=== PATIENT | male | born 1955 | race Caucasian/White ===

== ENCOUNTER → 2024-06-20 08:58 | Outpatient (REF) | payer MEDICARE, SELFPAY ==
--- NOTE | 2024-06-20 09:05 | CA_ITS ---
Transthoracic Echocardiogram Patient (Last, First, Middle): Tres Pettit, Gender: Male Date of : 1955 Age: 69 Procedure Date: 06/20/2024 Procedure Type: Transthoracic Echocardiogram Location: OP Height: 177.8 cm Weight: 165.56 kg BSA: 2.70 m2 Heart Rate: 81 bpm BP: 125 / 80 mmHg Scabbler: Referring MD: Zee WELLER Symptoms: HF Study Quality: Technically Difficult due to body Habitus ECG Rhythm: Atrial Fibrillation Conclusions: - Technically limited study. - Normal LVEF with no regional wall motion abnormality. - Very limited 2 D valvular assessment. Findings Procedure Information Contrast agent, definity, is being given per protocol without apparent complications. Left Ventricle Normal left ventricular size and systolic function. The visually estimated ejection fraction is between 60-65%. There is no evidence of regional wall motion abnormalities. Diastolic function is indeterminate on the basis of available data. Right Ventricle The right ventricle was not well visualized. Mildly increased right ventricular cavity size. Atria The left atrium is normal in size. The right atrium was not well visualized. Aortic Valve The aortic valve was not well visualized. There is no aortic valve stenosis. There is no aortic valve regurgitation. Mitral Valve The mitral valve was not well visualized. Likely normal mitral valve structure and function. There is no mitral valve regurgitation. There is no mitral valve stenosis. Tricuspid Valve The tricuspid valve was not well visualized. There is no tricuspid valve regurgitation. Indeterminate right atrial pressure. Great Vessels The aorta was not well visualized. Venous The inferior vena cava is normal in size and collapses greater than 50% with inspiration. Pericardium/Pleural There is no evidence of pericardial effusion. Prior Study Comparison No prior study available for comparison. Measurements 2D Linear Measurements Ao Root: 3.50 2.1-3.5 cm LVOT Diam: 2.20 3.0+(-)1.3 cm 2D Systolic Function EF 4C: 70.00 >55% EF 2C: 59.00 >55% EF BiP: 63.50 >55% Mitral Valve MV Pk E: 0.83 MV Decel Time: 190.00 E'Lateral: 9.25 E'Medial: 9.90 E/E' Med: 8.40 E/E' Lat: 8.90 PHT: 56.00 MVA PHT: 3.93 Decel [place]: 4.35 Aortic Valve AoV Pk Celso: 0.87 AoV Mn Celos: 0.61 AoV VTI: 0.17 AoV Pk Grad: 3.00 Aov Mn Grad: 2.00 YOSELIN Cont.VTI: 3.29 LVOT LVOT Pk Celso: 0.71 LVOT Mn Celso: 0.48 LVOT VTI: 0.15 LVOT Pk Grad: 2.00 LVOT Mn Grad: 1.00 LVOT Diam: 2.20 LVOT Area: 3.80 Diastolic Function MV Pk E: 0.83 E'Medial: 9.90 E/E' Med: 8.40 E' Laterial: 9.25 E/E' Lat: 8.90 Right Ventricle TAPSE (mm): 25.00 Tricuspid Valve TR Pk Celso: 1.57 TR Pk Grad: 10.00 RA Press: 3.00 RVSP: 13.00 Great Vessels Aorta Ao Root-2D: 3.50 2.0-3.7 cm Pulmonary Valve PV Pk Celso: 0.69 Peak PV Grad: 2.00 Updated in Other Vendor System with Status of Final Josh Moon MD electronically signed on 06/22/2024 7:16:56 PM with status of Final
--- OUTSIDE RECORDS SUMMARY | 2024-06-20 09:13 | XMS_ITS | Encounter Summary ---
Author Organization [employer] Address [address] [place] [address] Care Team Providers Care Vehicle Monitor Technician Name Role Phone Rojas Cardoza MD Primary Care Provider [phone] Saturnino Hansen Unavailable Unavailable Encounter Details Date Type Department Care Team (Late st Contact Info) Description 07/26/[address] [facility] [address] [place] [address] Provider, Isidra, Social History Tobacco Use Types Packs/Day Years Used Date Smoking Tobacco: Never Assessed Sex and Gender Information Value Date Recorded Sex Assigned at Male 02/16/2023 5:08 PM EST Legal Sex Male 5:31 PM EST Gender Identity Male 02/16/2023 5:08 PM EST Sexual Orientation Straight 02/16/2023 5: 08 PM EST documented as of this encounter Plan of Treatment Not on file documented as of this encounter Procedures Procedure Name Priority Date/Time Associated Diagnosis Comments DIABETES EYE EXAM Routine 01/17/2022 6:09 AM EST documented in this encounter Results * Diabetes Eye Exam (01/17/2022 6:09 AM EST) Historical Provider HEALTH MAINTENANCE Final Result documented in this encounter Visit Diagnoses Not on filedocumented in this encounter Care Teams Vehicle Monitor Technician Relationship Specialty Start Date End Date Rojas Cardoza MD [address] [place] [phone] PCP - General Internal Medicine 07/09/23 Saturnino Hansen Health Navigator 12/11/23 documented as of this encounter
--- OUTSIDE RECORDS SUMMARY | 2024-06-20 09:13 | XMS_ITS | Encounter Summary ---
Author Organization [facility], Address [address] [address] Phone Care Team Providers Care Mixer Dry Food Products Name Role Phone Ana Silver NP Primary Care Provider Abdullahi harmon Encounter Details Date Type Department Care Team (Late st Contact Info) Description 10/02/2022 Documentation Only [facility] [address] [place] [phone] Ana Silver NP Social History Tobacco Use Types Packs/Day Years Used Date Smoking Tobacco: Never Assessed Sex and Gender Information Value Date Recorded Sex Assigned at Not on file Legal Sex Male 12:40 PM EDT Gender Identity Not on file Sexual Orientation Not on file documented as of this encounter Plan of Treatment Upcoming Encounters Date Type Department Care Team (Late st Contact Info) Description 12/05/2024 4:15 PM EDT Office Visit [facility] [address] [phone] Rosales Ryder MD [address] [place] [phone] documented as of this encounter Visit Diagnoses Not on filedocumented in this encounter Care Teams Mixer Dry Food Products Relationship Specialty Start Date End Date Ana Silver NP PCP - General 09/26/22 documented as of this encounter
--- OUTSIDE RECORDS SUMMARY | 2024-06-20 09:13 | XMS_ITS | Encounter Summary ---
Author Organization [facility], Address [address] [address] Phone Care Team Providers Care Scientific Informatics Leader Name Role Phone Ana Silver NP Primary Care Provider Abdullahi harmon Encounter Details Date Type Department Care Team (Late st Contact Info) Description 10/02/2022 Documentation Only [facility] [address] [phone] Ana Silver NP Social History Tobacco Use [...] Visit [facility] [address] [place] [phone] Rosales Ryder MD [address] [place] [phone] documented as of this encounter Visit Diagnoses Not on filedocumented in this encounter Care Teams Scientific Informatics Leader Relationship Specialty Start Date End Date Ana Silver NP PCP - General 09/26/22 documented as of this encounter
--- OUTSIDE RECORDS SUMMARY | 2024-06-20 09:13 | XMS_ITS | Clinical Summary ---
Author Organization [facility], Address [address] [place] [address] [place] [address] Phone Care Team Providers Care Deicer Tester Name Role Phone Ana Silver NP Primary Care Provider Abdullahi harmon Medications Eliquis 5 MG tablet TAKE 2 TABLETS BY MOUTH TWICE DAILY FOR 7 DAYS THEN TAKE 1 TABLET BY MOUTH TWICE DAILY THEREAFTER. 10/12/19 23 Active carvedilol (COREG) 6.25 MG tablet Take 6.25 mg by mouth in the morning and 6.25 mg in the evening. 09/22/19 23 Active ciprofloxacin (CIPRO) 250 MG tablet Take 250 mg by mouth in the morning and 250 mg in the evening. 08/03/19 23 Active fluconazole (DIFLUCAN) 200 MG tablet Take 200 mg by mouth 1 (one) time each day 09/19/19 23 Active furosemide (LASIX) 40 MG tablet Take 40 mg by mouth 1 (one) time each day 10/12/19 23 Active OneTouch Verio test strip USE 1 STRIP TO TEST TWICE DAILY 10/17/19 23 Active Lantus SoloStar 100 UNIT/ML injection START WITH 16 UNITS SUBCUTANEOUSLY AT BEDTIME 09/26/19 23 Active B-D ULTRAFINE III SHORT PEN 31G X 8 MM misc USE 1 NEEDLE BELOW THE SKIN DAILY 09/28/19 23 Active lovastatin (MEVACOR) 20 MG tablet Take 20 mg by mouth at bed time 10/17/19 23 Active metFORMIN (GLUCOPHAGE) 1000 MG tablet Take 1,000 mg by mouth in the morning and 1,000 mg in the evening. 09/22/19 23 Active traMADol (ULTRAM) 50 MG tablet Take 50 mg by mouth 3 (three) times a day if needed 10/05/19 Active traZODone (DESYREL) 50 MG tablet TAKE 1/2 TABLET BY MOUTH AT BEDTIME NEEDED FOR SLEEP OR DEPRESSION 10/17/19 Active cephalexin (KEFLEX) 500 MG capsule Take 500 mg by mouth every 8 (eight) hours 09/19/192024 Discontinued losartan (COZAAR) 100 MG tablet Take 100 mg by mouth 1 (one) time each day 09/06/192024 Discontinued amLODIPine (NORVASC) 5 MG tablet TAKE 1 TABLET BY MOUTH DAILY IN THE MORNING FOR BLOOD PRESSURE 11/29/192024 Discontinued Active Problems Problem Noted Date Diagnosed Date Diabetes mellitus 11/08/2022 11/08/2022 Gout 11/08/2022 11/08/2022 Helicobacter-associated gastritis 11/08/2022 11/08/2022 Hiatal hernia 11/08/2022 11/08/2022 Hypertensive disorder 11/08/2022 11/08/2022 Spondylosis 11/08/2022 11/08/2022 Hypotension 11/08/2022 Hyperlipidemia 11/08/2022 Osteoarthritis involving lower extremity 023 Encounters Date Type Department Care Team Description 06/09/2024 9:45 AM EDT Office [facility] [address] [place] [address] Rosales Ryder MD Stage 3a chronic kidney disease (HCC) (Primary Dx); Type 2 diabetes mellitus with complication, not otherwise specified (HCC) 03/26/2024 Telephone [facility] [address] [place] [address] Meliza Weller MA from Last 3 Months Social History Tobacco Use Types Packs/Day Years Used Date Smoking Tobacco: Never Tobacco Cessation:Counseling Given: Not Answered Alcohol Use Standard Drinks/Week Comments Not Currently 0 (1 standard drink = 0.6 oz pur e alcohol) Sex and Gender Information Value Date Recorded Sex Assigned at Not on file Legal Sex Male 12:40 PM EDT Gender Identity Not on file Sexual Orientation Not on file Last Filed Vital Signs Vital Sign Reading Time Taken Comments Blood Pressure 136/82 06/09/2024 10:51 AM EDT Pulse - - Temperature - - Respiratory Rate - - Oxygen Saturation - - Inhaled Oxygen Concentration - - Weight - - Height - - Body Mass Index - - Plan of Treatment Upcoming Encounters Date Type Department Care Team (Late st Contact Info) Description 12/05/2024 4:15 PM EDT Office Visit [facility], [address] [place] [address] Rosales Ryder MD [address] [place] [address] Health Maintenance Due Date Last Done Comments Pneumococcal Vaccine: 50+ Ye ars (1 of 2 - PCV) 1959 Colorectal Cancer Screening: Annual FOBT 2002 Colorectal Cancer Screening: Colonoscopy 2002 Colorectal Cancer Screening: Sigmoidoscopy 2002 Diabetes: Hemoglobin A1C 09/26/2022 Diabetes: Pedal Pulse Checked 09/26/2022 Diabetes: Sensory Foot Exam 09/26/2022 Diabetes: Visual Foot Exam 09/26/2022 Diabetes: Ophthalmology Exam 07/08/2024 07/09/2023 Influenza Vaccine (Season Ended) 2024 Hepatitis B Vaccine Aged Out No longe r eligible based on patient's age to complete this topic Insurance [id number] Medicare [employer] Commercial Care Teams Deicer Tester Relationship Specialty Start Date End Date Ana Silver NP PCP - General 09/26/22
--- OUTSIDE RECORDS SUMMARY | 2024-06-20 09:13 | XMS_ITS | Encounter Summary ---
Author Organization [facility], Address [address] [address] Phone Care Team Providers Care Sandfill Operator Name Role Phone Ana Silver NP Primary Care Provider Abdullahi harmon Encounter Details Date Type Department Care Team (Late st Contact Info) Description 10/02/2022 Documentation Only [facility] [address] [place] [phone] Ana Silver NP Social History Tobacco Use [...] Visit [facility] [address] [place] [phone] Rosales Ryder MD [address] [place] [phone] documented as of this encounter Visit Diagnoses Not on filedocumented in this encounter Care Teams Sandfill Operator Relationship Specialty Start Date End Date Ana Silver NP PCP - General 09/26/22 documented as of this encounter
--- OUTSIDE RECORDS SUMMARY | 2024-06-20 09:13 | XMS_ITS | Clinical Summary ---
Author Organization [employer] Address [address] [facility] [address] [place] [address] Care Team Providers Care Fibreglass Gun Hand Name Role Phone Rojas Cardoza MD Primary Care Provider [phone] Saturnino Hansen Unavailable Unavailable Allergies No known active allergies Medications Eliquis 5 MG tablet Take 5 mg by mouth 2 times daily. Active traZODone (Desyrel) 50 MG tablet TAKE 1/2 TABLET BY MOUTH AT BEDTIME NEEDED FOR SLEEP OR DEPRESSION 3 Active lovastatin (Mevacor) 20 MG tablet Take 20 mg by mouth at bedtime. Active furosemide (Lasix) 40 MG tablet Take 40 mg by mouth Once per day. 3 Active carvedilol (Coreg) 6.25 MG tablet Take 6.25 mg by mouth 2 times daily. Active Cyanocobalamin (VITAMIN B-12 PO) Take by mouth. Activ e Lantus SoloStar 100 UNIT/ML pen START WITH 16 UNITS SUBCUTANEOUSLY AT BEDTIME 3 Active Active Problems Problem Noted Date Diagnosed Date Gout 11/08/2022 Hyperlipidemia 11/08/2022 Hypertensive disorder 11/08/2022 Diabetes mellitus 11/08/2022 Osteoarthritis of knee 11/08/2022 Social History Tobacco Use Types Packs/Day Years Used Date Smoking Tobacco: Never Assessed Sex and Gender Information Value Date Recorded Sex Assigned at Male 02/16/2023 5:08 PM EST Legal Sex Male 5:31 PM EST Gender Identity Male 02/16/2023 5:08 PM EST Sexual Orientation Straight 02/16/2023 5: 08 PM EST Last Filed Vital Signs Vital Sign Reading Time Taken Comments Blood Pressure 128/82 07/09/2023 11:06 AM EDT Pulse - - Temperature 36.2 ??C (97.2 ??F) 07/09/2023 11:06 AM E DT Respiratory Rate - - Oxygen Saturation - - Inhaled Oxygen Concentration - - Weight - - Height - - Body Mass Index - - Plan of Treatment Health Maintenance Due Date Last Done Comments CT Colonography 1955 Colonoscopy 1955 Colorectal Cancer Screening 1955 Depression Screening 1955 Diabetes: Hemoglobin A1C 1953 FIT DNA/Cologuard 1955 FIT 1955 FOBT 1955 Lipid Panel 1955 SDOH Screening 1955 Sigmoidoscopy 1953 Diabetes: Foot Exam 1963 Alcohol/Substance Use Screening 1965 Hepatitis C Screening 1971 DTaP/Tdap/Td Vaccines (1 - Tdap) 01/04/1972 Diabetes: Urine Protein Screening 01/04/1972 Pneumococcal Vaccine: 50+ Years (1 of 2 - PCV) 01/04/1972 Zoster Vaccines (1 of 2) 2003 RSV Patients and Patients Aged 60 years or older (1 - Risk 60-74 years 1-dose series) 2013 COVID-19 Vaccine (3 - 2023- season) 2023 07/08/2020, 06/17/2020 Influenza Vaccine (#1) 2023 Tobacco Screening 07/08/2024 07/09/2023 Eye Exam 07/08/2025 07/09/2023, 06/11, 07/09/2023, Additional history exists HIB Vaccines Aged Out No longer eligi ble based on patient's age to complete this topic HPV Vaccines Aged Out No longer eligi ble based on patient's age to complete this topic Hepatitis A Vaccines Aged Out No long er eligible based on patient's age to complete this topic Hepatitis B Vaccines Aged Out No long er eligible based on patient's age to complete this topic IPV Vaccines Aged Out No longer eligi ble based on patient's age to complete this topic Meningococcal Vaccine Aged Out No emir homero eligible based on patient's age to complete this topic RSV under 20 months Aged Out No longe r eligible based on patient's age to complete this topic Rotavirus Vaccines Aged Out No longer eligible based on patient's age to complete this topic Procedures Procedure Name Priority Date/Time Associated Diagnosis Comments DIABETES EYE EXAM Routine 01/17/2022 6:09 AM EST from Last 3 Months or Most Recently Relevant to Health Maintenance Results * Diabetes Eye Exam (01/17/2022 6:09 AM EST) us Historical Provider HEALTH MAINTENANCE Final Result from Last 3 Months or Most Recently Relevant to Health Maintenance Insurance [facility] [employer] PPO Care Teams Fibreglass Gun Hand Relationship Specialty Start Date End Date Rojas Cardoza MD [address] [facility] [address] [place] [phone] PCP - General Internal Medicine 07/09/23 Saturnino Hansen [place] Health Navigator 12/11/23
== END ==
LOC: HO.CARD 08:58
PROVIDERS: PCP Internal Medicine; Visit Provider Physician Assistant Medical
DX: I10 Essential (primary) hypertension (principal)
CPT/HCPCS: 93306; Q9957

== ENCOUNTER → 2024-06-20 09:05 | Outpatient (BNV) | payer MEDICARE, SELFPAY | PROVIDERS: PCP Internal Medicine; Visit Provider Internal Medicine Cardiovascular Disease | DX: I50.9 Heart failure, unspecified (principal) | CPT/HCPCS: 93306 ==